=== PATIENT | male | born 1990 | race Native Hawaiian/Other Pacific Islander ===

== ENCOUNTER 2020-11-13 09:58 | Emergency (ER) | payer BC ==
[~2020-11-13] VITALS: Ht 188 cm; Wt 95.3 kg
[2020-11-13 10:35] LABS: PLATELET COUNT 196 K/uL (142-355)
[2020-11-13 10:40] LABS: POTASSIUM 4.5 mmol/L (3.6-5.2)
[2020-11-13 12:15] VITALS: BP 148/89
== END 2020-11-13 12:12 | disposition home or self-care (01) ==
LOC: ED 09:58
PROVIDERS: Emergency Medicine
DX: N13.2 Hydronephrosis with renal and ureteral calculous obstruction (principal); Z87.442 Personal history of urinary calculi
CPT/HCPCS: 80048; 81000; 85027; 96374; 96375; 96376; 99284; J1885; J2175; J2405